=== PATIENT | male | born 1945 | race Caucasian/White ===

== ENCOUNTER 2018-01-29 08:07 | Outpatient (RCR) | payer MEDICARE, SELFPAY | END 2018-02-12 10:06 | LOC: CAR 08:07 | PROVIDERS: Family Provider Family Medicine; PCP Family Medicine; Visit Provider Family Medicine | DX: I25.119 Atherosclerotic heart disease of native coronary artery with unspecified angina pectoris (principal) | CPT/HCPCS: 93798 ==

== ENCOUNTER → 2019-02-27 08:10 | Outpatient (CLI) | payer OTHER, SELFPAY ==
--- NOTE | 2019-02-27 08:15 | DI.RAD.S_ITS ---
PROCEDURE: XR CHEST 2V INDICATIONS: pneumothorax TECHNIQUE: 2 views of the chest were acquired. COMPARISON: [facility], CR, XR CHEST 1 VIEW, 02/18/2019, 11:48. [facility], CR, CHEST 1 VIEW, 04/25/2015, 16:27. [facility], CR, CHEST 1 VIEW, 12/21/2014, 10:31. FINDINGS: Surgical changes and devices: None. Lungs and pleura: Lungs are abnormal with the right lung partially atelectatic associated with a subpulmonic right pleural effusion that has mildly enlarged from the most recent comparison 02/18/19. No left-sided pleural effusions or pneumothorax. There is a slight apical residual pneumothorax on the right, measuring only approximately 8-9 mm in maximal thickness. This likely was also previously present 02/18/19 but obscured by multiple overlapping ribs and the clavicle at that time. Mediastinum: Mediastinal contours are normal. Heart size is normal. Bones and chest wall: No suspicious bony abnormalities. Soft tissues appear unremarkable. IMPRESSION: 1. 8-9 mm maximal thickness slight apical residual pneumothorax on the right. 2. Subpulmonic right pleural effusion has mildly increased, no left pleural effusion is seen. The quantity of right effusion is considered small to moderate. Several small fluid collections within the minor fissure area are noted on the right similar to that previously present. Dictated by: Felix Morse M.D. on 02/27/2019 at 9:59 Approved by: Felix Morse M.D. on 02/27/2019 at 10:27
== END ==
PROVIDERS: Family Provider Family Medicine; PCP Family Medicine; Visit Provider Family Medicine
DX: J93.9 Pneumothorax, unspecified (principal); J90 Pleural effusion, not elsewhere classified
CPT/HCPCS: 71046

== ENCOUNTER → 2019-03-02 10:31 | Outpatient (CLI) | payer MEDICARE, SELFPAY ==
[2019-03-02 12:32] LABS: Add Manual Diff / Slide Review NO; Basophils Absolute Auto 100 /uL (0-100); Basophils Percent Auto 0.8 % (0-2); Eosinophils Absolute Auto 600 /uL (0-450); Eosinophils Percent Auto 7.9 % (2-4); Hematocrit 39.6 % (41-53); Hemoglobin 13.6 g/dL (13.5-17.5); Lymphocytes Absolute Auto 1100 /uL (1100-4500); Lymphocytes Percent Auto 15.6 % (25-40); Mean Corpuscular HGB Conc 34.2 % (30-36); Mean Corpuscular Hemoglobin 28.7 PG (26-34); Mean Corpuscular Volume 83.8 fL (80-100); Monocytes Absolute Auto 300 /uL (0-900); Monocytes Percent Auto 4.2 % (3-14); Neutrophils Absolute Auto 5100 /uL (1500-7000); Neutrophils Percent Auto 71.5 % (50-75); Platelet Count 366 X10^3/uL (150-400); Red Blood Cell Count 4.72 X10^6/uL (4.5-5.9); Red Cell Distribution Width 13.3 % (11.6-14.8); White Blood Cell Count 7.2 X10^3/uL (4.5-11.0)
[2019-03-02 13:06] LABS: Alanine Aminotransferase 28 IU/L (21-72); Albumin 4.3 g/dL (3.5-5.0); Albumin Globulin Ratio 1.7 (1.0-2.8); Alkaline Phosphatase 125 U/L (38-126); Aspartate Aminotransferase 25 IU/L (17-59); BUN Creatinine Ratio 25.7 (6-22); Bilirubin Total 0.6 mg/dL (0.2-1.3); Blood Urea Nitrogen 18 mg/dL (9-20); Calcium 9.5 mg/dL (8.4-10.2); Carbon Dioxide 25 mmol/L (22-32); Chloride 102 mmol/L (98-107); Cholesterol 239 mg/dL (140-199); Estimated Glomerular Filt Rate > 60.0 mL/min (>60); Globulin 2.5 g/dL (1.7-4.1); Glucose 101 mg/dL (80-110); HDL Cholesterol 34 mg/dL (40-60); HEMOLYSIS < 15 (0-50); LDL Cholesterol Calculated 167 mg/dL (<100); Potassium 5.2 mmol/L (3.4-5.1); Sodium 137 mmol/L (137-145); Total Protein 6.8 g/dL (6.3-8.2); Triglycerides 189 mg/dL (35-150)
[2019-03-02 13:36] LABS: Prostate Specific Antigen 0.178 ng/mL (0.10-4.00)
[2019-03-02 13:37] LABS: Thyroid Stimulating Hormone 0.55 uIU/mL (0.47-4.68)
== END ==
PROVIDERS: Family Provider Family Medicine; PCP Family Medicine; Visit Provider Family Medicine
DX: I25.10 Atherosclerotic heart disease of native coronary artery without angina pectoris (principal)
CPT/HCPCS: 36415; 80053; 80061; 84153; 84443; 85025

== ENCOUNTER 2019-06-11 12:52 | Emergency (ER) | payer MEDICARE, SELFPAY ==
[2019-06-11 12:59] VITALS: BP 205/77; PULSE 67; RESP 15; TEMP 36.4; O2SAT 95; BMI 25.8
[2019-06-11] MEDS: TET,DIPH,PERTUSS(ACELL),VAC/PF 0.5 ML SYRINGE IM (13:17)
--- NOTE | 2019-06-11 15:00 | ED.SKABFB ---
HPI - Skin/Abscess/Foreign Bdy <JUVE Gomez - Last Filed: 06/11/19 21:46> General Chief complaint: Extremity Injury, Upper Stated complaint: Fish hook in cheek Time Seen by Provider: 06/11/19 13:02 Source: patient Mode of arrival: ambulatory Limitations: no limitations History of Present Illness HPI narrative: 74yo-old healthy male presents emergency department today complaining of a fishhook in his left cheek. He states this happened around 6:00 a.m. this morning while fishing, he proceeded to continue fishing including the fish throughout and presented to the ER at this time to have it removed. He states the hook was in a fish when it slipped out and caught him on the cheek. Patient denies any head trauma, numbness, tingling, difficulty swallowing, difficulty breathing, fevers, chills, nausea, vomiting, or chest pain. Patient states he is unsure of his last tetanus. Related Data Home Medications Medication Instructions Recorded Confirmed aspirin #0 12/23/11 03/02/19 atenolol 25 mg PO DAILY 06/11/19 06/11/19 lisinopril 10 mg PO QPM 06/11/19 06/11/19 lisinopril 20 mg PO QAM 06/11/19 06/11/19 rosuvastatin [Crestor] 20 mg PO DAILY 06/11/19 06/11/19 Previous Rx's Medication Instructions Recorded nitroglycerin 0.4 mg sublingual 0.4 mg SUBLINGUAL PRN #100 tab 03/02/19 tablet oxycodone 5 mg tablet 5 mg PO Q4-6H PRN #30 tab 03/02/19 doxycycline hyclate 100 mg PO BID 7 Days #14 cap 06/11/19 Allergies Allergy/AdvReac Type Severity Reaction Status Date / Time No Known Drug Allergies Allergy Verified 06/11/19 12:59 Review of Systems <JUVE Gomez - Last Filed: 06/11/19 21:46> Review of Systems Narrative: REVIEW OF SYSTEMS: GENERAL: Denies fever or chills. HENT: Denies head trauma. EYE: Denies double vision or vision loss. CARDIOVASCULAR: Denies syncope. MUSCULOSKELETAL: Denies weakness, or deformities. INTEGUMENTARY: Complains of foot showed stuck in left cheek, see HPI. NEURO: Denies numbness or tingling. Patient denies headaches, he states that his blood pressure is always high. PFSH <JUVE Gomez - Last Filed: 06/11/19 21:46> Surgical History History of angioplasty Status post amputation of extremity Family History (Updated 10/11/14 @ 00:00 by Conversion Provider) Brother Age: 67 Hypertension High cholesterol Brother Age: 67 Hypertension High cholesterol Father Heart disease High cholesterol Social History Smoking Status: Former smoker Family History Brother Age: 67 Hypertension High cholesterol Brother Age: 67 Hypertension High cholesterol Father Heart disease High cholesterol Social History Smoking Status: Former smoker Exam <JUVE Gomez - Last Filed: 06/11/19 21:46> Initial Vital Signs Initial Vital Signs: Vital Signs Temperature 97.6 F 06/11/19 12:59 Pulse Rate 67 06/11/19 12:59 Respiratory Rate 15 06/11/19 12:59 Blood Pressure 205/77 H 06/11/19 12:59 Pulse Oximetry 95 06/11/19 12:59 PHYSICAL EXAMINATION: GENERAL: Well groomed, alert, and cooperative. Answers questions promptly and appropriately. Vital signs noted. HENT: Normocephalic, atraumatic. A large 8-10 cm barbed fishhook imbedded to left cheek with a small amount of surrounding erythema and dried blood around puncture wound. After foreign body removal, two small laceration less than 0.5 cm were noted to the cheek (1 with a hook was imbedded into the cheek, another with a Reba was pushed through to be cut off), wound was extensively irrigated and dressed. Patient tolerated procedure well. EYE: PERRLA, no surrounding erythema or swelling. RESPIRATORY: Normal respiratory rate, trachea midline, airway patent. No stridor, nasal flaring or accessory muscle use. MUSCULOSKELETAL: Normal gait and coordination. Equal tone and mass bilaterally. EXTREMITIES: CMS intact. Moves all extremities. SKIN: Warm, dry, soft, appropriate color for ethnicity NEURO: Alert and Oriented X 3. Good coordination. PSYCH: Appropriate affect and mood. <Symone Eller MD - Last Filed: 06/12/19 16:25> Initial Vital Signs Initial Vital Signs: Vital Signs Temperature 97.6 F 06/11/19 12:59 Pulse Rate 67 06/11/19 12:59 Respiratory Rate 15 06/11/19 12:59 Blood Pressure 205/77 H 06/11/19 12:59 Pulse Oximetry 95 06/11/19 12:59 Procedures <JUVE Gomez - Last Filed: 06/11/19 21:46> Foreign Body OTHER Time Out Performed: yes Site: left and face Description of foreign body: fish hook Sedation/Analgesia: other (Lido 1% with Bicarb ) Technique: manual removal and removal with forceps Confirmed by:: direct visualization Complications: none Post-procedure exam: awake, alert Neurovascular: normal distal pulse, normal capillary fill and distal light touch sensation intact Nerve Block Nerve Block 1: Time out performed: Yes Local Anesthetic: lidocaine 1% and with bicarb Amount of anesthesia used (mL): 8 Side: left Nerve Blocks: other (Facial) Procedure Successful: Yes Patient Tolerated Procedure: Well Complications: none Course <JUVE Gomez - Last Filed: 06/11/19 21:46> Course Course Narrative: After administration of lidocaine with bicarb to the surrounding area, forceps were used to push the reba of the hook through the side of the cheek, the bar was clipped with cutters. Then, the fishhook was removed completely. All parts of the fishhook were seen and disposed of. The wound was irrigated extensively with normal saline and a dressing was applied. Antibiotics were given to the patient, patient was updated on his tetanus shot. Orders Ordered: Discontinued Medications Bacitracin (Bacitracin) 1 applic TOP NOW ONE Stop: 06/11/19 14:41 Last Admin: 06/11/19 15:12 Dose: 1 applic Documented by: BTONER Diphtheria/Tetanus/Acell Pertussis (Adacel) 0.5 ml IM .ONCE ONE Stop: 06/11/19 13:01 Last Admin: 06/11/19 13:17 Dose: 0.5 ml Documented by: KBROTEM Lidocaine/Sodium Bicarbonate (Buffered Lidocaine 10 Ml Syr) 10 ml INJ NOW ONE Stop: 06/11/19 13:59 Last Admin: 06/11/19 15:12 Dose: 10 ml Documented by: BTONER Vital Signs Vital signs: Vital Signs - 8 hr 06/11/19 15:31 Pulse Rate 57 L Respiratory Rate 18 Blood Pressure 194/57 H Pulse Oximetry 97 <Symone Eller MD - Last Filed: 06/12/19 16:25> Orders Ordered: Discontinued Medications Bacitracin (Bacitracin) 1 applic TOP NOW ONE Stop: 06/11/19 14:41 Last Admin: 06/11/19 15:12 Dose: 1 applic Documented by: BTONER Diphtheria/Tetanus/Acell Pertussis (Adacel) 0.5 ml IM .ONCE ONE Stop: 06/11/19 13:01 Last Admin: 06/11/19 13:17 Dose: 0.5 ml Documented by: DARRENOTEAdrienne Lidocaine/Sodium Bicarbonate (Buffered Lidocaine 10 Ml Syr) 10 ml INJ NOW ONE Stop: 06/11/19 13:59 Last Admin: 06/11/19 15:12 Dose: 10 ml Documented by: BTONER Vital Signs Vital signs: Vital Signs - 8 hr 06/11/19 15:31 Pulse Rate 57 L Respiratory Rate 18 Blood Pressure 194/57 H Pulse Oximetry 97 MDM - Skin/Abscess/Foreign Bdy <JUVE Gomez - Last Filed: 06/11/19 21:46> Medical Records Attestation: I reviewed the patient's medical records. Lab Data Attestation: I reviewed the patient's lab results. MDM Narrative Medical decision making narrative: Simple removal a fishhook-foreign body from the cheek, removal was visualized, all pieces of foreign body were accounted for. Patient was prescribed doxycycline as this covers salt water bacteria, there was surrounding erythema around the wound, and patient went for hours with this had imbedded into his cheek.. I do not have any concern for sepsis as patient was not tachycardic, he was afebrile, and the incident happened today. Strict return precautions given and follow-up instructions discussed. I also discussed with patient the importance for follow-up with high blood pressure, patient understood and exhibited no symptoms. Discharge Plan Departure Patient Disposition: Home Clinical Impression: Fish hook injury of cheek Qualifiers: Encounter type: initial encounter Qualified Code(s): S09.93XA - Unspecified injury of face, initial encounter Discharge Date/Time: 06/11/19 15:31 Instructions: DI for Cellulitis -- Adult Activity Restrictions/Additional Instructions: Thank you for entrusting me with your care today. As discussed, we have removed the fishhook in your cheek. Because it was left in place for a while and because of the salt water exposure there is an increased risk of infection, I prescribed you antibiotics, please take these as directed. You may put Neosporin over the area, please washer wound daily. Follow up with your primary care provider if needed. Continue to monitor for signs of infection such as increased redness, increased warmth, pus, discolored discharge, increased pain, fevers, chills, or other concerning symptoms--if this happened, please return to the walk-in clinic or the emergency department. Prescriptions: New doxycycline hyclate 100 mg capsule 100 mg PO BID 7 Days Qty: 14 RF: 0 No Action aspirin 81 MG tablet,delayed release (DR/EC) Qty: 0 RF: 0 oxycodone 5 mg tablet 5 mg PO Q4-6H PRN (Reason: pain) Qty: 30 RF: 0 nitroglycerin [Nitrostat] 0.4 mg tablet, sublingual 0.4 mg Sublingual PRN Qty: 100 RF: 5 lisinopril 20 mg tablet 20 mg PO QAM RF: 0 lisinopril 20 mg tablet 10 mg PO QPM RF: 0 atenolol 50 mg tablet 25 mg PO DAILY RF: 0 rosuvastatin [Crestor] 20 mg tablet 20 mg PO DAILY RF: 0 Referrals: Derik Gross MD [Primary Care Provider] -
[2019-06-11] MEDS: BACITRACIN OINT 0.9 GM PCKT 1 APPLIC TOP (15:12)
[2019-06-11] MEDS: LIDO 1%/SOD BICARB 8.4% (10ML) 10 ML SYRINGE INJ (15:12)
--- NOTE | 2019-06-11 15:30 | PC.NURSE ---
provided bacitracin to left cheek as ordered.
[2019-06-11 15:31] VITALS: BP 194/57; PULSE 57; RESP 18; O2SAT 97
== END 2019-06-11 15:31 | disposition home or self-care (01) ==
PROVIDERS: Emergency Provider Nurse Practitioner; Family Provider Family Medicine; PCP Family Medicine
DX: S01.432A Puncture wound without foreign body of left cheek and temporomandibular area, initial encounter (principal); W45.8XXA Other foreign body or object entering through skin, initial encounter
CPT/HCPCS: 90471; 99282; 99283; 90715

== ENCOUNTER → 2019-06-29 09:26 | Outpatient (CLI) | payer MEDICARE, SELFPAY ==
[2019-06-29 10:30] LABS: Add Manual Diff / Slide Review NO; Basophils Absolute Auto 100 /uL (0-100); Basophils Percent Auto 1.6 % (0-2); Eosinophils Absolute Auto 500 /uL (0-450); Eosinophils Percent Auto 6.1 % (2-4); Hematocrit 48.9 % (41-53); Hemoglobin 16.9 g/dL (13.5-17.5); Lymphocytes Absolute Auto 2000 /uL (1100-4500); Lymphocytes Percent Auto 24.3 % (25-40); Mean Corpuscular HGB Conc 34.6 % (30-36); Mean Corpuscular Hemoglobin 28.2 PG (26-34); Mean Corpuscular Volume 81.3 fL (80-100); Monocytes Absolute Auto 600 /uL (0-900); Monocytes Percent Auto 7.1 % (3-14); Neutrophils Absolute Auto 5100 /uL (1500-7000); Neutrophils Percent Auto 60.9 % (50-75); Platelet Count 201 X10^3/uL (150-400); Red Blood Cell Count 6.01 X10^6/uL (4.5-5.9); Red Cell Distribution Width 14.9 % (11.6-14.8); White Blood Cell Count 8.4 X10^3/uL (4.5-11.0)
[2019-06-29 11:07] LABS: Alanine Aminotransferase 32 IU/L (21-72); Albumin 4.7 g/dL (3.5-5.0); Albumin Globulin Ratio 1.5 (1.0-2.8); Alkaline Phosphatase 68 U/L (38-126); Aspartate Aminotransferase 33 IU/L (17-59); BUN Creatinine Ratio 28.6 (6-22); Bilirubin Total 0.7 mg/dL (0.2-1.3); Blood Urea Nitrogen 20 mg/dL (9-20); Calcium 9.8 mg/dL (8.4-10.2); Carbon Dioxide 28 mmol/L (22-32); Chloride 101 mmol/L (98-107); Cholesterol 281 mg/dL (140-199); Estimated Glomerular Filt Rate > 60.0 mL/min (>60); Globulin 3.1 g/dL (1.7-4.1); Glucose 110 mg/dL (80-110); HDL Cholesterol 48 mg/dL (40-60); HEMOLYSIS 46 (0-50); LDL Cholesterol Calculated 199 mg/dL (<100); Potassium 5.3 mmol/L (3.4-5.1); Sodium 140 mmol/L (137-145); Total Protein 7.8 g/dL (6.3-8.2); Triglycerides 168 mg/dL (35-150)
[2019-06-29 11:34] LABS: Prostate Specific Antigen 0.261 ng/mL (0.10-4.00)
== END ==
PROVIDERS: PCP Family Medicine; Visit Provider Family Medicine
DX: I25.10 Atherosclerotic heart disease of native coronary artery without angina pectoris (principal); C61 Malignant neoplasm of prostate
CPT/HCPCS: 36415; 80053; 80061; 84153; 85025

== ENCOUNTER → 2019-10-27 10:09 | Outpatient (CLI) | payer MEDICARE, SELFPAY ==
[2019-10-27 11:14] LABS: Add Manual Diff / Slide Review NO; Basophils Absolute Auto 100 /uL (0-100); Basophils Percent Auto 1.4 % (0-2); Eosinophils Absolute Auto 300 /uL (0-450); Hematocrit 45.1 % (41-53); Hemoglobin 15.3 g/dL (13.5-17.5); Lymphocytes Absolute Auto 1600 /uL (1100-4500); Lymphocytes Percent Auto 24.1 % (25-40); Mean Corpuscular Hemoglobin 29.2 PG (26-34); Monocytes Absolute Auto 500 /uL (0-900); Neutrophils Absolute Auto 4000 /uL (1500-7000); Neutrophils Percent Auto 62.5 % (50-75); Platelet Count 204 X10^3/uL (150-400); Red Blood Cell Count 5.24 X10^6/uL (4.5-5.9); White Blood Cell Count 6.5 X10^3/uL (4.5-11.0)
[2019-10-27 11:45] LABS: Alanine Aminotransferase 27 IU/L (<50); Albumin 4.1 g/dL (3.5-5.0); Albumin Globulin Ratio 1.7 (1.0-2.8); Alkaline Phosphatase 54 U/L (38-126); Aspartate Aminotransferase 27 IU/L (17-59); BUN Creatinine Ratio 28.8 (6-22); Bilirubin Total 0.6 mg/dL (0.2-1.3); Blood Urea Nitrogen 23 mg/dL (9-20); Calcium 9.4 mg/dL (8.4-10.2); Carbon Dioxide 26 mmol/L (22-32); Chloride 104 mmol/L (98-107); Cholesterol 206 mg/dL (140-199); Estimated Glomerular Filt Rate > 60.0 mL/min (>60); Globulin 2.4 g/dL (1.7-4.1); Glucose 100 mg/dL (80-110); HDL Cholesterol 45 mg/dL (40-60); HEMOLYSIS 28 (0-50); LDL Cholesterol Calculated 119 mg/dL (<100); Potassium 4.7 mmol/L (3.4-5.1); Sodium 139 mmol/L (137-145); Total Protein 6.5 g/dL (6.3-8.2); Triglycerides 212 mg/dL (35-150)
[2019-10-27 12:18] LABS: Prostate Specific Antigen 0.248 ng/mL (0.10-4.00)
== END ==
PROVIDERS: PCP Family Medicine; Visit Provider Family Medicine
DX: I25.10 Atherosclerotic heart disease of native coronary artery without angina pectoris (principal); C61 Malignant neoplasm of prostate
CPT/HCPCS: 36415; 80053; 80061; 84153; 85025

== ENCOUNTER → 2021-03-10 08:16 | Outpatient (CLI) | payer MEDICARE, SELFPAY ==
[2021-03-10 08:55] LABS: Add Manual Diff / Slide Review NO; Basophils Absolute Auto 100 /uL (0-100); Basophils Percent Auto 1.5 % (0-2); Eosinophils Absolute Auto 400 /uL (0-450); Eosinophils Percent Auto 6.2 % (2-4); Hemoglobin 15.4 g/dL (13.5-17.5); Lymphocytes Absolute Auto 1800 /uL (1100-4500); Lymphocytes Percent Auto 26.9 % (25-40); Mean Corpuscular HGB Conc 34.2 % (30-36); Mean Corpuscular Hemoglobin 29.2 PG (26-34); Mean Corpuscular Volume 85.4 fL (80-100); Monocytes Absolute Auto 500 /uL (0-900); Neutrophils Absolute Auto 3800 /uL (1500-7000); Neutrophils Percent Auto 58.4 % (50-75); Platelet Count 201 X10^3/uL (150-400); Red Blood Cell Count 5.27 X10^6/uL (4.5-5.9); Red Cell Distribution Width 13.4 % (11.6-14.8); White Blood Cell Count 6.6 X10^3/uL (4.5-11.0)
[2021-03-10 09:19] LABS: Alanine Aminotransferase 27 IU/L (<50); Albumin 4.1 g/dL (3.5-5.0); Albumin Globulin Ratio 1.7 (1.0-2.8); Alkaline Phosphatase 50 U/L (38-126); Aspartate Aminotransferase 25 IU/L (17-59); BUN Creatinine Ratio 30.4 (6-22); Bilirubin Total 0.5 mg/dL (0.2-1.3); Blood Urea Nitrogen 24 mg/dL (9-20); Calcium 9.6 mg/dL (8.4-10.2); Carbon Dioxide 24 mmol/L (22-32); Chloride 106 mmol/L (98-107); Cholesterol 210 mg/dL (140-199); Estimated Glomerular Filt Rate > 60.0 mL/min (>60); Globulin 2.4 g/dL (1.7-4.1); Glucose 115 mg/dL (80-110); HDL Cholesterol 55 mg/dL (40-60); HEMOLYSIS < 15 (0-50); LDL Cholesterol Calculated 138 mg/dL (<100); Potassium 4.5 mmol/L (3.4-5.1); Sodium 138 mmol/L (137-145); Total Protein 6.5 g/dL (6.3-8.2); Triglycerides 84 mg/dL (35-150)
[2021-03-10 09:48] LABS: Prostate Specific Antigen Scrn 0.185 ng/mL (0.1-4.0)
[2021-03-10 10:16] LABS: Microalbumi Creatinin Ratio Ur 8.8 ug/mg CR (<30); Microalbumin Urine Random 0.9 mg/dL (0-1.6)
== END ==
PROVIDERS: PCP Family Medicine; Referring Provider Family Medicine; Visit Provider Family Medicine
DX: C61 Malignant neoplasm of prostate (principal); I10 Essential (primary) hypertension; Z12.5 Encounter for screening for malignant neoplasm of prostate; E78.2 Mixed hyperlipidemia; I25.10 Atherosclerotic heart disease of native coronary artery without angina pectoris
CPT/HCPCS: 36415; 80053; 80061; 82043; 82570; 85025; G0103

== ENCOUNTER → 2021-03-15 09:43 | Outpatient (CLI) | payer MEDICARE, SELFPAY ==
--- NOTE | 2021-03-16 14:37 | PM.TREADMILL ---
Cardiac Stress Test Report Referral & Results Date Patient Seen: 03/16/21 Requesting provider: Brenton Pires Indication: Throat burning, question anginal equivalent, history of coronary artery disease status post stent placement Rest ECG: Unremarkable Procedure Note: Today following both written and verbal informed consent the patient was exercised according to a standard Zuhair protocol patient went for a total of 5 minutes 10 seconds achieving a maximum heart rate of 143 maximum systolic blood pressure of 215. This is approximately 7.0 METS. Exercise was terminated at this point because of patient unable to continue. Patient was also given Cardiolite through a previously started Hep-Lock IV by the diagnostic imaging staff approximately 1 minute prior to the cessation of exercise. Patient was hypertensive throughout There was some flat ST segment depression inferior leads during exercise that rapidly resolved with cessation of exercise in early recovery. However late recovery developed T-wave inversions in the lateral leads primarily V4 through V6. The may have been some changes in the inferior leads as well although given baseline abnormalities difficult to ascertain Occasional PVC and PAC were noted including 3-5 beat runs of SVT in recovery Function aerobic impairment rates about 20% on the active scale Impression: Patient nonspecific ST-T segment changes with exercise that are suggestive of ischemia but not diagnostic. Please see perfusion imaging report for further details Patient also quite hypertensive with exercise any even hypertensive at rest prior to initiation of procedure. Minor supraventricular dysrhythmias as above Somewhat limited exercise capacity Please note: Actual ECG tracings can be found in the PACS system.
--- NOTE | 2021-03-16 16:39 | DI.NM.S_ITS ---
DATE OF SERVICE: 03/15/2021 PROCEDURE PERFORMED: Exercise treadmill stress and rest myocardial perfusion imaging with gating to assess ejection fraction and regional wall motion. ORDERING PROVIDER: Dr. Brenton Pires. INDICATIONS: The patient is a 75-year-old with a history of coronary artery stent and exertional neck discomfort, concerning for an anginal equivalent. EXERCISE TREADMILL TESTING: The patient was able to exercise for 5 minutes 10 seconds on a standard Zuhair protocol suggesting mild-moderately reduced exercise capacity with an AMINTA of +20%. He had a normal heart rate response, achieving a maximum heart rate of 143 BPM (97% of his predicted maximum) but a hypertensive blood pressure response with a resting blood pressure of 178/96, increasing to a maximum of 215/100. He had no chest discomfort or neck discomfort with exercise. His resting ECG shows sinus rhythm with nonspecific inferolateral ST-segment abnormalities that become significantly accentuated with stress but remain nonspecific because of the baseline abnormality. There are occasional isolated PVCs, but no concerning arrhythmias. At 4 minutes 5 seconds of exercise at a heart rate of 142 BPM, 27.4 millicuries of technetium-99m Myoview was injected. He was imaged 15 minutes later using a gated SPECT acquisition protocol. The day prior he had been injected with 24.0 millicuries of technetium-99m Myoview at rest and was imaged 30 minutes later, again using a gated SPECT acquisition protocol. FINDINGS: 1. Raw data: There is fairly good myocardial tracer uptake. Lung/heart ratio is normal at 0.38 with a normal TID ratio of 1.08. 2. Quantitated gated SPECT: Post stress ejection fraction is estimated at 74% without any focal wall motion abnormality and specifically the inferior wall has normal contractility. The resting ejection fraction is 71% with an end-diastolic volume of 101 mL. 3. Myocardial perfusion imaging: Post-stress supine images show a fairly normal myocardial perfusion pattern with the exception of a mild defect in the distal inferior wall and inferoapex that completely resolves on prone imaging, consistent with attenuation artifact. The resting images show a similar perfusion pattern with possibly some mild improvement, but this is nonspecific in the absence of any persistent defect on the prone images. There are no other perfusion defects. IMPRESSION: 1. Probable normal myocardial perfusion study. 2. Small, subtle, partially reversible distal inferior and inferoapical defect that resolves on prone imaging, most consistent with diaphragmatic attenuation. While a small volume of ischemia cannot be entirely excluded, if present, it is low risk. 3. Normal left ventricular systolic function without any focal wall motion abnormality. 4. Mild-moderately reduced exercise capacity without anginal symptoms. While there were significant ST-segment shifts, baseline ST-segment abnormalities and a hypertensive blood pressure response to exercise makes these nonspecific. 5. Compared with his previous myocardial perfusion study of 12/22/2014, a similar perfusion pattern was seen where there was inferior wall perfusion defect that resolved on prone imaging. His previous ejection fraction was 79% with an end-diastolic volume of 82 mL, suggesting slight interval increase in size but no other significant change. His AMINTA was +20% on that study as well but there were no significant EC changes on that study. Giovany Garcia - DANIEL/rell/frances doc#: [id number]/job#: [id number] dd: 03/16/2021 16:04:00 dt: 03/16/2021 16:25:00 DICTATING /COPIES TO: Mukund Lugo MD; Brenton Pires, BLU MNE: KATERYNA;
== END ==
PROVIDERS: PCP Family Medicine; Referring Provider Family Medicine; Visit Provider Family Medicine
DX: I25.10 Atherosclerotic heart disease of native coronary artery without angina pectoris (principal); M54.2 Cervicalgia; R07.0 Pain in throat; R03.0 Elevated blood-pressure reading, without diagnosis of hypertension; Z95.5 Presence of coronary angioplasty implant and graft; Z20.822 Contact with and (suspected) exposure to COVID-19
CPT/HCPCS: 78452; 87635; 93016; 93017; 93018; C9803; A9502

== ENCOUNTER → 2021-03-15 11:05 | Outpatient (CLI) | payer MEDICARE, SELFPAY ==
[2021-03-15 13:01] LABS: COVID19 -Nasal RAPID Negative (Negative)
== END ==
PROVIDERS: PCP Family Medicine; Visit Provider Nurse Practitioner Family
DX: Z20.822 Contact with and (suspected) exposure to COVID-19 (principal)
CPT/HCPCS: 87635; C9803

== ENCOUNTER 2021-04-05 11:43 | Emergency (ER) | payer MEDICARE, SELFPAY ==
[2021-04-05 12:10] VITALS: BP 203/86; PULSE 49; RESP 18; TEMP 35.8; O2SAT 97; BMI 26.6
[2021-04-05 13:33] LABS: Add Manual Diff / Slide Review NO; Basophils Absolute Auto 100 /uL (0-100); Basophils Percent Auto 0.9 % (0-2); Eosinophils Absolute Auto 200 /uL (0-450); Eosinophils Percent Auto 2.3 % (2-4); Hematocrit 44.4 % (41-53); Hemoglobin 15.2 g/dL (13.5-17.5); Lymphocytes Absolute Auto 1400 /uL (1100-4500); Mean Corpuscular HGB Conc 34.3 % (30-36); Mean Corpuscular Hemoglobin 29.2 PG (26-34); Mean Corpuscular Volume 85.1 fL (80-100); Monocytes Absolute Auto 900 /uL (0-900); Monocytes Percent Auto 9.3 % (3-14); Neutrophils Absolute Auto 7200 /uL (1500-7000); Neutrophils Percent Auto 73.5 % (50-75); Platelet Count 206 X10^3/uL (150-400); Red Blood Cell Count 5.22 X10^6/uL (4.5-5.9); Red Cell Distribution Width 13.2 % (11.6-14.8); White Blood Cell Count 9.9 X10^3/uL (4.5-11.0)
[2021-04-05 13:39] LABS: Alanine Aminotransferase 36 IU/L (<50); Albumin 4.5 g/dL (3.5-5.0); Albumin Globulin Ratio 1.5 (1.0-2.8); Alkaline Phosphatase 63 U/L (38-126); Aspartate Aminotransferase 25 IU/L (17-59); Bilirubin Total 0.6 mg/dL (0.2-1.3); Blood Urea Nitrogen 20 mg/dL (9-20); Calcium 9.7 mg/dL (8.4-10.2); Carbon Dioxide 27 mmol/L (22-32); Chloride 102 mmol/L (98-107); Estimated Glomerular Filt Rate > 60.0 mL/min (>60); Globulin 3.1 g/dL (1.7-4.1); Glucose 121 mg/dL (80-110); HEMOLYSIS < 15 (0-50); Sodium 138 mmol/L (137-145); Total Protein 7.6 g/dL (6.3-8.2)
[2021-04-05 13:59] VITALS: PULSE 50; RESP 16; TEMP 36.3; O2SAT 99
[2021-04-05 14:00] VITALS: BP 169/74
[2021-04-05 15:00] VITALS: BP 181/81; PULSE 54; RESP 16; O2SAT 99
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
== END 2021-04-05 15:30 | disposition home or self-care (01) ==
PROVIDERS: Emergency Provider Emergency Medicine; PCP Family Medicine
DX: L03.116 Cellulitis of left lower limb (principal); Z89.512 Acquired absence of left leg below knee
CPT/HCPCS: 36415; 80053; 85025; 87040; 99281; 99283

== ENCOUNTER 2021-04-14 15:10 | Emergency (ER) | payer MEDICARE, SELFPAY ==
[2021-04-14 15:30] VITALS: BP 197/88; PULSE 57; RESP 20; TEMP 36.6; O2SAT 97; BMI 26.6
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
[2021-04-14 16:02] VITALS: BP 178/75; PULSE 61; TEMP 36.9; O2SAT 94
[2021-04-14 16:16] VITALS: PULSE 62; O2SAT 98
== END 2021-04-14 16:18 | disposition home or self-care (01) ==
PROVIDERS: Emergency Provider Emergency Medicine; PCP Family Medicine
DX: L03.116 Cellulitis of left lower limb (principal); Z89.512 Acquired absence of left leg below knee
CPT/HCPCS: 99281

== ENCOUNTER 2021-05-01 08:58 | Emergency (ER) | payer MEDICARE, SELFPAY ==
[2021-05-01] VITALS (12 sets, daily range): BP systolic 197–232; BP diastolic 83–102; PULSE 42–54; RESP 16; TEMP 36.5; O2SAT 96–100
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
--- NOTE | 2021-05-01 12:55 | DI.RAD.S_ITS ---
PROCEDURE: XR TIBIA FIBULA LT 2V INDICATIONS: erythema at amputation site TECHNIQUE: 2 views of the tibia and fibula were acquired. COMPARISON: [facility], MR, MR LOWER LEG LT WO/W CON, 02/03/2018, 17:32. [facility], CR, TIB/FIB 2V LEFT, 12/08/2017, 10:49. [facility], CR, TIB/FIB 2V LEFT, 11/07/2017, 9:55. FINDINGS: Bones: Distal tibial amputation can be seen. Similar to 2018, there is bony sclerosis seen involving the distal tibial shaft. Periosteal reaction can also be seen distally, which is similar to 2018. Soft tissues: Soft tissue findings are seen, which are similar to 2018. IMPRESSION: No rosenda acute abnormality can be seen by plain film. If there is strong suspicion for developing osteomyelitis, please consider a dedicated MRI without and with contrast for further evaluation (assuming that there is no contraindication to MRI). Dictated by: Kyaw Frye M.D. on 05/01/2021 at 12:34 Approved by: Kyaw Frye M.D. on 05/01/2021 at 12:38
[2021-05-01 13:30] LABS: Add Manual Diff / Slide Review NO; Basophils Absolute Auto 100 /uL (0-100); Basophils Percent Auto 1.2 % (0-2); Eosinophils Absolute Auto 300 /uL (0-450); Eosinophils Percent Auto 3.4 % (2-4); Hematocrit 46.1 % (41-53); Hemoglobin 15.5 g/dL (13.5-17.5); Lymphocytes Absolute Auto 1900 /uL (1100-4500); Lymphocytes Percent Auto 18.7 % (25-40); Mean Corpuscular HGB Conc 33.6 % (30-36); Mean Corpuscular Hemoglobin 28.8 PG (26-34); Mean Corpuscular Volume 85.6 fL (80-100); Monocytes Absolute Auto 700 /uL (0-900); Monocytes Percent Auto 7.4 % (3-14); Neutrophils Absolute Auto 6900 /uL (1500-7000); Neutrophils Percent Auto 69.3 % (50-75); Platelet Count 205 X10^3/uL (150-400); Red Blood Cell Count 5.39 X10^6/uL (4.5-5.9); Red Cell Distribution Width 12.8 % (11.6-14.8)
[2021-05-01 13:45] LABS: Lactate (Lactic Acid) 0.9 mmol/L (0.7-2.1)
[2021-05-01 13:46] LABS: Alanine Aminotransferase 37 IU/L (<50); Albumin 4.2 g/dL (3.5-5.0); Albumin Globulin Ratio 1.4 (1.0-2.8); Alkaline Phosphatase 59 U/L (38-126); Aspartate Aminotransferase 29 IU/L (17-59); BUN Creatinine Ratio 24.3 (6-22); Bilirubin Total 0.8 mg/dL (0.2-1.3); Blood Urea Nitrogen 18 mg/dL (9-20); Calcium 9.6 mg/dL (8.4-10.2); Carbon Dioxide 29 mmol/L (22-32); Chloride 105 mmol/L (98-107); Estimated Glomerular Filt Rate > 60.0 mL/min (>60); Globulin 2.9 g/dL (1.7-4.1); Glucose 106 mg/dL (80-110); HEMOLYSIS < 15 (0-50); Sodium 140 mmol/L (137-145); Total Protein 7.1 g/dL (6.3-8.2)
[2021-05-01 13:48] LABS: C-Reactive Protein Quant 1.6 mg/dL (<1.0)
[2021-05-01 13:49] LABS: Erythrocyte Sedimentation Rate 3 MM/HR (0-15)
[2021-05-01 14:02] LABS: Procalcitonin 0.08 ng/mL (<0.5)
== END 2021-05-01 14:45 | disposition home or self-care (01) ==
PROVIDERS: Emergency Provider Nurse Practitioner Family; PCP Family Medicine
DX: M79.605 Pain in left leg (principal); Z89.612 Acquired absence of left leg above knee
CPT/HCPCS: 36415; 73590; 80053; 83605; 84145; 85025; 85651; 86140; 99283; 99284

== ENCOUNTER → 2022-08-29 08:14 | Outpatient (CLI) | payer MEDICARE, SELFPAY ==
[2022-08-29 08:43] LABS: Add Manual Diff / Slide Review NO; Basophils Absolute Auto 100 /uL (0-100); Basophils Percent Auto 1.1 % (0-2); Eosinophils Absolute Auto 500 /uL (0-450); Eosinophils Percent Auto 6.1 % (2-4); Hematocrit 46.1 % (41-53); Hemoglobin 15.5 g/dL (13.5-17.5); Lymphocytes Absolute Auto 2300 /uL (1100-4500); Lymphocytes Percent Auto 30.7 % (25-40); Mean Corpuscular HGB Conc 33.7 % (30-36); Mean Corpuscular Hemoglobin 28.6 PG (26-34); Mean Corpuscular Volume 84.8 fL (80-100); Monocytes Absolute Auto 600 /uL (0-900); Monocytes Percent Auto 7.6 % (3-14); Neutrophils Absolute Auto 4100 /uL (1500-7000); Neutrophils Percent Auto 54.5 % (50-75); Platelet Count 226 X10^3/uL (150-400); Red Blood Cell Count 5.43 X10^6/uL (4.5-5.9); Red Cell Distribution Width 13.3 % (11.6-14.8); White Blood Cell Count 7.5 X10^3/uL (4.5-11.0)
[2022-08-29 09:19] LABS: Alanine Aminotransferase 25 IU/L (<50); Albumin 4.5 g/dL (3.5-5.0); Albumin Globulin Ratio 1.8 (1.0-2.8); Alkaline Phosphatase 57 U/L (38-126); Aspartate Aminotransferase 23 IU/L (17-59); BUN Creatinine Ratio 24.4 (6-22); Bilirubin Total 0.5 mg/dL (0.2-1.3); Blood Urea Nitrogen 21 mg/dL (9-20); Calcium 9.4 mg/dL (8.4-10.2); Carbon Dioxide 27 mmol/L (22-32); Chloride 103 mmol/L (98-107); Cholesterol 201 mg/dL (140-199); Estimated Glomerular Filt Rate > 60 mL/min (>60); Globulin 2.5 g/dL (1.7-4.1); Glucose 113 mg/dL (80-110); HDL Cholesterol 54 mg/dL (40-60); HEMOLYSIS < 15 (0-50); LDL Cholesterol Calculated 123 mg/dL (<100); Sodium 143 mmol/L (137-145); Triglycerides 122 mg/dL (35-150)
[2022-08-29 09:44] LABS: Creatinine Urine Random 107.5 mg/dL
[2022-08-29 09:48] LABS: TSH w/ Reflex to FT4 1.45 uIU/mL (0.47-4.68)
[2022-08-29 09:49] LABS: Microalbumi Creatinin Ratio Ur 13.9 ug/mg CR (<30); Microalbumin Urine Random 1.5 mg/dL (0-1.6)
[2022-08-30 08:11] LABS: PSA Ultrasensitive 0.077 ng/mL (0.000-4.000)
== END ==
PROVIDERS: PCP Family Medicine; Referring Provider Family Medicine; Visit Provider Family Medicine
DX: C61 Malignant neoplasm of prostate (principal); E78.2 Mixed hyperlipidemia; I10 Essential (primary) hypertension; I25.118 Atherosclerotic heart disease of native coronary artery with other forms of angina pectoris; I27.20 Pulmonary hypertension, unspecified; Z95.5 Presence of coronary angioplasty implant and graft
CPT/HCPCS: 36415; 80053; 80061; 82043; 82570; 84153; 84443; 85025

== ENCOUNTER 2023-02-10 15:08 | Emergency (ER) | payer MEDICARE, SELFPAY ==
[2023-02-10 15:08] VITALS: BP 176/77; PULSE 67; RESP 16; TEMP 36.7; O2SAT 96; BMI 26.9
--- NOTE | 2023-02-10 15:20 | ED_ITS ---
HPI - Skin/Abscess/Foreign Bdy General Chief complaint: Skin/Abscess/Foreign Body Stated complaint: fish hook in face Time Seen by Provider: 02/10/23 15:10 Source: patient Mode of arrival: Ambulatory History of Present Illness HPI narrative: Patient is a 77-year-old male who yesterday had a fish hook get stuck in the right side of his face. He was in [facility] at the time and could not make it to a hospital which is why he presents today. He is unsure when his last tetanus shot was. Was unable to remove it on its own. Related Data Home Medications Medication Instructions Recorded Confirmed aspirin 81 mg tablet,delayed ##0 12/23/11 09/10/22 release lisinopril 20 mg tablet See Rx Instructions .Route .COMPLEX 09/10/22 09/10/22 Previous Rx's Medication Instructions Recorded doxycycline hyclate 100 mg tablet 100 mg PO BID #20 tabs 04/05/21 atorvastatin 40 mg tablet See Rx Instructions .Route 01/09/22 .COMPLEX #90 tabs nitroglycerin 0.4 mg sublingual 0.4 mg sublingual PRN #100 tabs 01/15/22 tablet (Nitrostat) atenolol 50 mg tablet 25 mg PO DAILY #90 tabs 08/31/22 Allergies Allergy/AdvReac Type Severity Reaction Status Date / Time No Known Drug Allergies Allergy Verified 04/14/21 15:39 Review of Systems Integumentary/Breasts Skin/Breast: Reports system reviewed and no additional complaints, except as documented Patient History Medical History Chicken pox Irritable bowel syndrome Measles Mumps Skin cancer (~1999) Surgical History Anesthesia History of angioplasty (~2009) History of surgery (~2013) Status post amputation of extremity Family History (Updated 03/15/21 @ 20:29 by Mariam Reyes) Brother Age: 71 Hypertension High cholesterol Brother Age: 71 Hypertension High cholesterol Father Heart disease High cholesterol Mother Stroke Sister Stroke Social History Smoking Status: Former smoker Smoking Status: Former smoker alcohol intake frequency: 0-2 drinks per day Substance Use Type: does not use Exam Initial Vital Signs Initial Vital Signs: Vital Signs Temperature 98.1 F 02/10/23 15:08 Pulse Rate 67 02/10/23 15:08 Respiratory Rate 16 02/10/23 15:08 Blood Pressure 176/77 H 02/10/23 15:08 Pulse Oximetry 96 02/10/23 15:08 Oxygen Delivery Method Room Air 02/10/23 15:08 Skin Other: Patient with a fish hook from the right side of his face along the mandibular ridge. No surrounding erythema. Procedures Foreign Body OTHER Foreign Body Removal Site: left Description of foreign body: fish hook Sedation/Analgesia: none Technique: manual removal and removal with forceps Confirmed by:: direct visualization Complications: none Course Vital Signs Vital signs: Vital Signs - 8 hr 02/10/23 15:08 Temperature 98.1 F Pulse Rate 67 Respiratory Rate 16 Blood Pressure 176/77 H Pulse Oximetry 96 Oxygen Delivery Method Room Air MDM - Skin/Abscess/Foreign Bdy MDM Narrative Medical decision making narrative: Small amount of 1% lidocaine was used to anesthetize the area of the fishhook was removed without issue. The entire fishhook was removed. Low suspicion for retained foreign body. No signs of infection. No indication for antibiotics. His last tetanus shot was in 2019. Discharge Plan Departure Patient Disposition: Home Clinical Impression: Foreign body entering through skin Activity Restrictions/Additional Instructions: According to our records your last tetanus shot was in 2019 so we do not need to update that today. You can shower like normal use soap and water to clean the area. Return to the emergency department for any new symptoms. Prescriptions: No Action aspirin 81 MG tablet,delayed release (DR/EC) Qty: 0 atorvastatin 40 mg tablet See Rx Instructions .ROUTE .COMPLEX Qty: 90 3RF Dose Instruction: TAKE 1 TABLET BY MOUTH EVERY EVENING Rx Instructions: TAKE 1 TABLET BY MOUTH EVERY EVENING nitroglycerin [Nitrostat] 0.4 mg tablet, sublingual 0.4 mg Sublingual PRN Qty: 100 5RF atenolol 50 mg tablet 25 mg PO DAILY Qty: 90 3RF lisinopril 20 mg tablet See Rx Instructions .ROUTE .COMPLEX Dose Instruction: TAKE 1 1/2 TABLETS BY MOUTH EVERY DAY. PT NEEDS APPT FOR FURTHER REFILLS. Rx Instructions: TAKE 2 TABLETS BY MOUTH EVERY DAY. PT NEEDS APPT FOR FURTHER REFILLS. doxycycline hyclate 100 mg tablet 100 mg PO BID Qty: 20 0RF Referrals: Brenton Pires MD [Primary Care Provider] - Stand Alone Forms: Patient Portal/API
== END 2023-02-10 15:29 | disposition home or self-care (01) ==
PROVIDERS: Emergency Provider Emergency Medicine; PCP Family Medicine
DX: S00.85XA Superficial foreign body of other part of head, initial encounter (principal); W45.8XXA Other foreign body or object entering through skin, initial encounter
CPT/HCPCS: 10120; 99281; 99282

== ENCOUNTER → 2023-10-16 08:53 | Outpatient (CLI) | payer MEDICARE, SELFPAY ==
[2023-10-16 09:26] LABS: Add Manual Diff / Slide Review NO; Basophils Absolute Auto 100 /uL (0-100); Basophils Percent Auto 1.2 % (0-2); Eosinophils Absolute Auto 400 /uL (0-450); Eosinophils Percent Auto 5.6 % (2-4); Hemoglobin 15.3 g/dL (13.5-17.5); Lymphocytes Absolute Auto 2500 /uL (1100-4500); Mean Corpuscular HGB Conc 33.9 % (30-36); Mean Corpuscular Hemoglobin 28.5 PG (26-34); Mean Corpuscular Volume 83.9 fL (80-100); Monocytes Absolute Auto 600 /uL (0-900); Monocytes Percent Auto 7.8 % (3-14); Neutrophils Absolute Auto 3800 /uL (1500-7000); Neutrophils Percent Auto 51.4 % (50-75); Platelet Count 239 X10^3/uL (150-400); Red Blood Cell Count 5.36 X10^6/uL (4.5-5.9); Red Cell Distribution Width 13.4 % (11.6-14.8); White Blood Cell Count 7.3 X10^3/uL (4.5-11.0)
[2023-10-16 09:40] LABS: Alanine Aminotransferase 24 IU/L (<50); Albumin 4.4 g/dL (3.5-5.0); Albumin Globulin Ratio 1.6 (1.0-2.8); Alkaline Phosphatase 52 U/L (38-126); Aspartate Aminotransferase 25 IU/L (17-59); BUN Creatinine Ratio 33.7 (6-22); Bilirubin Total 0.6 mg/dL (0.2-1.3); Blood Urea Nitrogen 30 mg/dL (9-20); Carbon Dioxide 26 mmol/L (22-32); Chloride 104 mmol/L (98-107); Cholesterol 256 mg/dL (140-199); Estimated Glomerular Filt Rate > 60 mL/min (>60); Globulin 2.8 g/dL (1.7-4.1); Glucose 116 mg/dL (80-110); HDL Cholesterol 51 mg/dL (40-60); HEMOLYSIS < 15 (0-50); LDL Cholesterol Calculated 169 mg/dL (<100); Sodium 140 mmol/L (137-145); Total Protein 7.2 g/dL (6.3-8.2); Triglycerides 181 mg/dL (35-150)
[2023-10-16 09:46] LABS: Potassium 6.2 mmol/L (3.4-5.1)
[2023-10-16 10:08] LABS: TSH w/ Reflex to FT4 1.23 uIU/mL (0.47-4.68)
[2023-10-16 10:10] LABS: Prostate Specific Antigen Scrn 0.087 ng/mL (0.1-4.0)
[2023-10-16 13:05] LABS: Creatinine Urine Random 75.4 mg/dL
[2023-10-16 13:14] LABS: Microalbumi Creatinin Ratio Ur 17.2 ug/mg CR (<30); Microalbumin Urine Random 1.3 mg/dL (0-1.6)
== END ==
PROVIDERS: PCP Family Medicine; Referring Provider Family Medicine; Visit Provider Family Medicine
DX: I35.0 Nonrheumatic aortic (valve) stenosis (principal); I10 Essential (primary) hypertension; Z12.5 Encounter for screening for malignant neoplasm of prostate; C61 Malignant neoplasm of prostate; I27.20 Pulmonary hypertension, unspecified; E78.2 Mixed hyperlipidemia
CPT/HCPCS: 36415; 80053; 80061; 82043; 82570; 84443; 85025; G0103

== ENCOUNTER → 2023-10-23 08:57 | Outpatient (CLI) | payer MEDICARE, SELFPAY ==
--- NOTE | 2023-10-23 09:00 | DI.US.S_ITS ---
PROCEDURE: US CAROTID DOPPLER BI INDICATIONS: exertional dyspnea, HTN TECHNIQUE: Color and pulse Doppler interrogation was performed of both carotid systems, with image documentation and velocity measurements. COMPARISON: [facility], , CAROTID ARTERY DOPPLER [facility], 09/09/2017, 7:49. FINDINGS: Stenosis calculations are based on SRU (Society of Radiologists in Ultrasound) criteria. Right side: Brachial blood pressure: 178/76 mm Hg. Common carotid artery peak systolic velocity: 71 cm/sec. Internal carotid artery peak systolic velocity: 131 cm/sec. Internal carotid artery end diastolic velocity: 32 cm/sec. External carotid artery peak systolic velocity: 347 cm/sec. ICA/CCA peak systolic ratio: 1.8 . Eckert scale imaging description: Atheromatous calcifications are present at the carotid bifurcation. Percent internal carotid artery stenosis: 50-69% stenosis. Vertebral artery: Flow direction is antegrade. Left side: Brachial blood pressure: 170/76 mm Hg. Common carotid artery peak systolic velocity: 88 cm/sec. Internal carotid artery peak systolic velocity: 89 cm/sec. Internal carotid artery end diastolic velocity: 25 cm/sec. External carotid artery peak systolic velocity: 138 cm/sec. ICA/CCA peak systolic ratio: 1.0. Eckert scale imaging description: Mild atheromatous plaque is present at the carotid bulb. Percent internal carotid artery stenosis: Less than 50% stenosis. Vertebral artery: Flow direction is antegrade. IMPRESSION: 1. 50-69% stenosis of the right internal carotid artery. Please note, this is increased in extent when compared with the prior study dated September 09, 2017. 2. Less than 50% stenosis of the left internal carotid artery. Dictated by: Essence Hernández M.D. on 10/23/2023 at 13:25 Approved by: Essence Hernández M.D. on 10/23/2023 at 13:34
[2023-10-23 10:34] LABS: Alanine Aminotransferase 25 IU/L (<50); Albumin 4.3 g/dL (3.5-5.0); Albumin Globulin Ratio 1.5 (1.0-2.8); Alkaline Phosphatase 60 U/L (38-126); Aspartate Aminotransferase 27 IU/L (17-59); BUN Creatinine Ratio 32.5 (6-22); Bilirubin Total 0.7 mg/dL (0.2-1.3); Blood Urea Nitrogen 26 mg/dL (9-20); Calcium 9.8 mg/dL (8.4-10.2); Carbon Dioxide 26 mmol/L (22-32); Chloride 99 mmol/L (98-107); Estimated Glomerular Filt Rate > 60 mL/min (>60); Globulin 2.8 g/dL (1.7-4.1); Glucose 127 mg/dL (80-110); HEMOLYSIS < 15 (0-50); Potassium 4.6 mmol/L (3.4-5.1); Sodium 136 mmol/L (137-145); Total Protein 7.1 g/dL (6.3-8.2)
== END ==
LOC: US 08:59
PROVIDERS: PCP Family Medicine; Referring Provider Family Medicine; Visit Provider Family Medicine
DX: I65.23 Occlusion and stenosis of bilateral carotid arteries (principal); R06.09 Other forms of dyspnea; I27.20 Pulmonary hypertension, unspecified; I25.10 Atherosclerotic heart disease of native coronary artery without angina pectoris; I10 Essential (primary) hypertension; E78.2 Mixed hyperlipidemia; E87.5 Hyperkalemia; Z95.5 Presence of coronary angioplasty implant and graft
CPT/HCPCS: 36415; 80053; 93880

== ENCOUNTER → 2023-11-12 07:02 | Outpatient (CLI) | payer MEDICARE, SELFPAY ==
--- NOTE | 2023-11-12 07:04 | DI.ECHO.S_ITS ---
[facility] +---------+ : : [address] : : : : [phone] : : : : Phone: [phone]+ Echocardiogram Report + + :Name: NIKI MONTANO Study Date: 11/12/2023 Height: 66 in : :[facility] ReadingLocation: Weight: 170 lb : : Gender: Male BSA: 1.9 m2 : :: 1945 Age: 78 yrs BP: 168/77 mmHg: :Reason For Study: CORONARY ARTERY DISEASE : :Ordering Physician: BEN, : :MORRO Performed By: Angie Edwards : :Referring: MORRO CONTRERAS : + + Interpretation Summary The patient was in sinus bradycardia with heart rates between 44-56 bpm during the exam. The ejection fraction is estimated to be 60-65%. Diastolic function could not be accurately assessed due to contradictory data. The right ventricle is normal in size and function. There is prolapse of the posterior mitral valve leaflet(s). There is mild to moderate mitral regurgitation. Pulmonary artery pressures cannot be estimated because of the lack of a measurable TR jet velocity but the IVC suggests a CVP of around 3 mmHg. Compared to the prior study dated 11/13/2017, there is been an increase in the mitral regurgitation. Procedure: A two-dimensional transthoracic echocardiogram with color flow and Doppler was performed. The study quality was technically adequate. There is no prior echocardiogram noted for this patient. The patient was in sinus bradycardia with heart rates between 44-56 bpm during the exam. Left Ventricle: The left ventricle is normal in size and wall thickness. The ejection fraction is estimated to be 60-65%. Diastolic function could not be accurately assessed due to contradictory data. Right Ventricle: The right ventricle is normal in size and function. Atria: The left atrial size is normal. Right atrial size is normal. There is no Doppler evidence for an interatrial shunt. Mitral Valve: The mitral valve leaflets appear borderline thickened, but open well. There is prolapse of the posterior mitral valve leaflet(s). There is mild mitral valve prolapse. There is mild to moderate mitral regurgitation. Aortic Valve: The aortic valve is trileaflet. The aortic valve opens well. The aortic valve is slightly calcified. There is no aortic valve stenosis. No aortic regurgitation is present. Tricuspid Valve: The tricuspid valve is normal in structure and function. There is trace tricuspid regurgitation. Pulmonary artery pressures cannot be estimated because of the lack of a measurable TR jet velocity but the IVC suggests a CVP of around 3 mmHg. Pulmonic Valve: The pulmonic valve leaflets are thin and pliable; valve motion is normal. There is trace pulmonic regurgitation. Great Vessels: The aortic root is normal size. The dimensions of the ascending aorta are normal. The IVC is of normal diameter and collapses greater than 50% with a sniff. This suggests a low right atrial pressure of 3 mm Hg. Pericardium/ Pleura There is no pericardial effusion. There is no pleural effusion. MMode/2D Measurements & Calculations LVIDd: 5.5 cm LVOT diam: 2.3 cm LVIDs: 3.3 cm Ao root diam: 2.9 cm FS: 39.8 % asc Aorta Diam: 3.0 cm IVSd: 0.86 cm LVPWd: 0.88 cm LV perry. diameter/BSA (cm/m^2): 3.0 LV sys. diameter/BSA (cm/m^2): 1.8 LA A2 area: 19.8 cm2 RA long axis: 5.2 cm LA A4 area: 19.3 cm2 RA area: 16.9 cm2 LA length (vol): 5.8 cm RA vol: 46.2 ml LA vol: 56.1 ml RA : 24.8 ml/m2 LA vol index: 30.1 ml/m2 IVC diam: 1.1 cm RVD1 (basal): 3.7 cm RVD2 (mid): 2.9 cm TAPSE: 2.4 cm Doppler Measurements & Calculations Ao V2 max: 143.0 cm/sec LVOT Max Vargas: 89.1 cm/sec Ao V2 mean: 92.6 cm/sec LV V1 max P.2 mmHg Ao max P.2 mmHg LV V1 VTI: 20.4 cm Ao mean P.9 mmHg JORDYN(I,D): 2.8 cm2 Ao V2 VTI: 29.2 cm JORDYN(V,D): 2.5 cm2 sev ratio: 0.70 JORDYN indexed to BSA (cm^2/m^2): 1.5 MV E max vargas: 102.7 cm/sec TR max vargas: 257.7 cm/sec MV A max vargas: 100.3 cm/sec TR max P.6 mmHg MV E/A: 1.0 PA V2 max: 121.9 cm/sec Med Peak E' Vargas: 4.8 cm/sec PA V2 mean: 79.8 cm/sec E/E' med: 21.4 PA mean P.8 mmHg Lat Peak E' Vargas: 6.1 cm/sec PA pr(Accel): 25.9 mmHg E/E' lat: 16.8 E/e' average: 19.1 MV dec time: 0.27 sec SV(LVOT): 81.4 ml Reading Physician:11:19 AM
== END ==
PROVIDERS: PCP Family Medicine; Referring Provider Family Medicine; Visit Provider Family Medicine
DX: I25.10 Atherosclerotic heart disease of native coronary artery without angina pectoris (principal); I34.1 Nonrheumatic mitral (valve) prolapse; I34.0 Nonrheumatic mitral (valve) insufficiency; I10 Essential (primary) hypertension; E78.2 Mixed hyperlipidemia
CPT/HCPCS: 93306

== ENCOUNTER → 2023-11-22 09:20 | Outpatient (CLI) | payer MEDICARE, SELFPAY ==
--- NOTE | 2023-11-25 21:34 | DI.NM.S_ITS ---
DATE OF SERVICE: 11/22/2023 PROCEDURE PERFORMED: Pharmacologic vasodilator stress and rest myocardial perfusion imaging with gating to assess ejection fraction and regional wall motion. ORDERING PROVIDER: Dr. Brenton Pires. INDICATIONS: The patient is a 78-year-old male with previous coronary artery stenting and known carotid disease who presents with worsening dyspnea. CARDIAC STRESS: Per protocol, 0.4 mg of regadenoson was infused with a normal hemodynamic response and no anginal symptoms. His resting ECG showed LVH with repolarization abnormality. With stress, there were no significant ST-segment shifts but had considerable RR variability suggesting sinus arrhythmia or a wandering atrial pacemaker, but no rapid or concerning arrhythmias. Per protocol, 25.0 millicuries of technetium-99m Myoview was injected and he was imaged 15 minutes later using a gated SPECT acquisition protocol. Three days prior, he had been injected with 27.3 millicuries of technetium-99m Myoview while at rest and was imaged 15 minutes later, again using a gated SPECT acquisition protocol. FINDINGS: 1. Raw data. There is fairly good myocardial tracer uptake. The lung/heart ratio is normal at 0.36 with a normal TID ratio of 1.06. 2. Quantitated gated SPECT: Post-stress ejection fraction is 71% without any focal wall motion abnormality and specifically the distal inferolateral wall appears to have brisk contractility. The resting ejection fraction is 67% with a normal resting end-diastolic volume of 94 mL. 3. Myocardial perfusion imaging: Post-stress supine images show a small, subtle defect in the distal inferolateral segment but otherwise appear normal. This defect essentially resolves on the prone imaging, suggesting that it most likely reflects attenuation artifact. The resting images show a similar perfusion pattern, although with some improvement in the distal inferolateral segment. IMPRESSION: 1. Probable normal myocardial perfusion study. 2. Small, subtle, partially reversible perfusion defect in the distal inferolateral segment that essentially resolves on prone imaging, most consistent with attenuation artifact although a small volume of ischemia cannot be entirely excluded. Yet, if present, it occupies a small volume of myocardium and is low risk. 3. Normal left ventricular size and systolic function without any focal wall motion abnormality. 4. No angina or ECG evidence of ischemia with pharmacologic vasodilator stress. He developed significant rhythm irregularity suggesting a wandering atrial pacemaker or profound sinus arrhythmia following regadenoson but there were no concerning arrhythmias. He had no anginal discomfort. 5. Compared to his previous myocardial perfusion study of 03/15/2021, an identical perfusion pattern was seen. He previously also had a small, subtle distal inferolateral defect that resolved on prone imaging although appeared to be more fixed then compared to on today's exam. His previous post-stress ejection fraction was 74% with a resting ejection fraction of 71% and an end-diastolic volume of 101 mL, suggesting the absence of any significant change. There has been no significant change from his previous study. Giovany Garcia - DANIEL/rell/CHIKA doc#: [id number]/job#: [id number] dd: 11/25/2023 15:25:00 dt: 11/25/2023 21:15:00 DICTATING /COPIES TO: Mukund Lugo MD; Brenton Pires, BLU MNE: KATERYNA;
== END ==
PROVIDERS: PCP Family Medicine; Referring Provider Family Medicine; Visit Provider Family Medicine
DX: I65.29 Occlusion and stenosis of unspecified carotid artery (principal); R06.09 Other forms of dyspnea; Z95.5 Presence of coronary angioplasty implant and graft
CPT/HCPCS: 78452; 93016; 93017; A9502; J2785

== ENCOUNTER 2025-01-02 08:27 | Emergency (ER) | payer MEDICARE, SELFPAY ==
[2025-01-02] VITALS (18 sets, daily range): BP systolic 127–209; BP diastolic 60–90; PULSE 49–75; RESP 16–18; TEMP 36.5; O2SAT 93–98; BMI 27.4
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
--- NOTE | 2025-01-02 09:36 | DI.CT.S_ITS ---
PROCEDURE: CT LE LT W CON INDICATIONS: LLE amputation with infection TECHNIQUE: After the administration of intravenous contrast, 3 mm axial sections acquired of the left tibia/fibula COMPARISON: None. FINDINGS: Amputation of the foot at the tibial plafond and distal fibula same level. Distal tibial and fibular fusion. Diffuse dystrophic calcification of the syndesmosis. Proximal tib fib joint unremarkable. Soft tissue swelling noted anteriorly with edema and enhancement at the amputation site. Small underlying in capsulated fluid collection measures 1.1 x 0.9 cm. No osseous erosion IMPRESSION: Possible small 1 cm soft tissue abscess. No osseous erosion. Approved by: Jon Melgar M.D. on 01/02/2025 at 12:41
[2025-01-02] MEDS: cefTRIAXone 1,000 MG in SODIUM CHLORIDE 0.9% 100 ML 200 MG IV (10:03)
[2025-01-02] MEDS: LACTATED RINGERS 1,000 ML 1000 ML IV (10:04)
[2025-01-02 10:11] LABS: Add Manual Diff / Slide Review NO; Basophils Absolute Auto 100 /uL (0-100); Eosinophils Absolute Auto 300 /uL (0-450); Hematocrit 46.6 % (41-53); Hemoglobin 15.9 g/dL (13.5-17.5); Lymphocytes Absolute Auto 1200 /uL (1100-4500); Lymphocytes Percent Auto 13.4 % (25-40); Mean Corpuscular HGB Conc 34.2 % (30-36); Mean Corpuscular Hemoglobin 28.8 PG (26-34); Mean Corpuscular Volume 84.1 fL (80-100); Monocytes Absolute Auto 600 /uL (0-900); Monocytes Percent Auto 7.4 % (3-14); Neutrophils Absolute Auto 6400 /uL (1500-7000); Neutrophils Percent Auto 74.2 % (50-75); Platelet Count 260 X10^3/uL (150-400); Red Blood Cell Count 5.54 X10^6/uL (4.5-5.9); Red Cell Distribution Width 13.3 % (11.6-14.8); White Blood Cell Count 8.6 X10^3/uL (4.5-11.0)
[2025-01-02 10:27] LABS: Lactate (Lactic Acid) 1.9 mmol/L (0.7-2.1)
[2025-01-02 10:29] LABS: Alanine Aminotransferase 38 IU/L (<50); Albumin 4.3 g/dL (3.5-5.0); Albumin Globulin Ratio 1.4 (1.0-2.8); Alkaline Phosphatase 65 U/L (38-126); Aspartate Aminotransferase 38 IU/L (17-59); BUN Creatinine Ratio 33.8 (6-22); Bilirubin Total 0.7 mg/dL (0.2-1.3); Blood Urea Nitrogen 27 mg/dL (9-20); Calcium 9.2 mg/dL (8.4-10.2); Carbon Dioxide 25 mmol/L (22-32); Chloride 100 mmol/L (98-107); Estimated Glomerular Filt Rate > 60 mL/min (>60); Globulin 3.1 g/dL (1.7-4.1); Glucose 130 mg/dL (80-110); HEMOLYSIS 20 (0-50); Potassium 3.7 mmol/L (3.4-5.1); Sodium 136 mmol/L (137-145); Total Protein 7.4 g/dL (6.3-8.2)
[2025-01-02] MEDS: LIDOCAINE 1% W/EPI 20ML SUBCUT (14:19)
== END 2025-01-02 14:38 | disposition home or self-care (01) ==
PROVIDERS: Emergency Provider Family Medicine; PCP Family Medicine
DX: L02.416 Cutaneous abscess of left lower limb (principal); Z89.512 Acquired absence of left leg below knee
CPT/HCPCS: 10060; 36415; 73701; 80053; 83605; 85025; 87040; 96361; 96365; 99284; J0696; Q9967

== ENCOUNTER → 2025-02-08 08:40 | Outpatient (CLI) | payer MEDICARE, SELFPAY ==
[2025-02-08 09:40] LABS: Add Manual Diff / Slide Review NO; Basophils Absolute Auto 100 /uL (0-100); Basophils Percent Auto 1.4 % (0-2); Eosinophils Absolute Auto 300 /uL (0-450); Eosinophils Percent Auto 4.7 % (2-4); Hematocrit 44.7 % (41-53); Hemoglobin 15.4 g/dL (13.5-17.5); Lymphocytes Absolute Auto 1800 /uL (1100-4500); Mean Corpuscular HGB Conc 34.5 % (30-36); Mean Corpuscular Hemoglobin 29.1 PG (26-34); Mean Corpuscular Volume 84.4 fL (80-100); Monocytes Absolute Auto 600 /uL (0-900); Monocytes Percent Auto 9.7 % (3-14); Neutrophils Absolute Auto 3300 /uL (1500-7000); Neutrophils Percent Auto 54.2 % (50-75); Platelet Count 234 X10^3/uL (150-400); Red Blood Cell Count 5.29 X10^6/uL (4.5-5.9); Red Cell Distribution Width 13.2 % (11.6-14.8); White Blood Cell Count 6.1 X10^3/uL (4.5-11.0)
[2025-02-08 09:48] LABS: Hemoglobin A1C% w Est Avg Glu 5.8 % (4.0-6.0)
[2025-02-08 09:59] LABS: Creatinine Urine Random 93.01 mg/dL
[2025-02-08 10:00] LABS: Alanine Aminotransferase 31 IU/L (<50); Albumin 4.5 g/dL (3.5-5.0); Alkaline Phosphatase 60 U/L (38-126); Aspartate Aminotransferase 30 IU/L (17-59); BUN Creatinine Ratio 30.1 (6-22); Bilirubin Total 0.9 mg/dL (0.2-1.3); Blood Urea Nitrogen 28 mg/dL (9-20); Calcium 9.3 mg/dL (8.4-10.2); Carbon Dioxide 28 mmol/L (22-32); Chloride 97 mmol/L (98-107); Cholesterol 214 mg/dL (140-199); Estimated Glomerular Filt Rate > 60 mL/min (>60); Globulin 2.2 g/dL (1.7-4.1); Glucose 129 mg/dL (70-99); HDL Cholesterol 43 mg/dL (40-60); HEMOLYSIS < 15 (0-50); LDL Cholesterol Calculated 148 mg/dL (<100); Potassium 4.1 mmol/L (3.4-5.1); Sodium 134 mmol/L (137-145); Total Protein 6.7 g/dL (6.3-8.2); Triglycerides 117 mg/dL (35-150)
[2025-02-08 10:03] LABS: Microalbumin Urine Random 0.9 mg/dL (0-1.6)
[2025-02-08 10:30] LABS: TSH w/ Reflex to FT4 0.83 uIU/mL (0.47-4.68)
[2025-02-08 22:40] LABS: PSA Ultrasensitive 0.026 ng/mL (0.000-4.000)
[2025-02-09 04:08] LABS: Apolipoprotein B 114 mg/dL (<90)
== END ==
LOC: LAB 08:42
PROVIDERS: PCP Family Medicine; Referring Provider Family Medicine; Visit Provider Family Medicine
DX: I65.29 Occlusion and stenosis of unspecified carotid artery (principal); I10 Essential (primary) hypertension; I25.10 Atherosclerotic heart disease of native coronary artery without angina pectoris; C61 Malignant neoplasm of prostate; I27.20 Pulmonary hypertension, unspecified; I35.0 Nonrheumatic aortic (valve) stenosis; E78.2 Mixed hyperlipidemia
CPT/HCPCS: 36415; 80053; 80061; 82043; 82172; 82570; 83036; 84153; 84443; 85025

== ENCOUNTER 2025-02-11 08:57 | Emergency (ER) | payer MEDICARE, SELFPAY ==
[2025-02-11] VITALS (7 sets, daily range): BP systolic 129–170; BP diastolic 59–82; PULSE 49–64; RESP 18–20; TEMP 36.6–36.7; O2SAT 93–98; BMI 26.9
--- NOTE | 2025-02-11 11:39 | ED_ITS ---
HPI - Skin/Abscess/Foreign Bdy <Radha Stoll PA-C - Last Filed: 02/11/25 14:33> General Chief complaint: Skin/Abscess/Foreign Body Stated complaint: Lower left leg infection Time Seen by Provider: 02/11/25 11:11 Source: patient Mode of arrival: Ambulatory History of Present Illness HPI narrative: Mr. 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 Patient has been dealing with cellulitis and abscess of his left ankle stump, most recently in the beginning of December which she was treated with antibiotics (Augmentin) and incision and drainage. Patient states few days ago his temp started to get red again and he developed a swollen/pimple like area that he was concerned was an abscess. He denies any trauma or wounds to the stump. He is decreased sensation at baseline. He is otherwise feeling well with no chest p ain, shortness of breath, fevers, chills, nausea, vomiting or any other concerns. He does wear a prosthesis over the ankle stump which is very tight. He denies ever having a wound culture performed previously. Related Data Home Medications Medication Instructions Recorded Confirmed aspirin 81 mg tablet,delayed ##0 12/22/02/09/25 release Previous Rx's Medication Instructions Recorded nitroglycerin 0.4 mg sublingual 0.4 mg sublingual PRN #100 tabs 01/15/22 tablet (Nitrostat) amlodipine 5 mg tablet 5 mg PO DAILY #90 tabs 10/08/24 atenolol 50 mg tablet 25 mg (1/2 x 50 mg) PO DAILY #45 10/08/24 tabs ezetimibe 10 mg tablet (Zetia) 10 mg PO DAILY #90 tabs 10/08/24 hydrochlorothiazide 25 mg tablet 25 mg PO DAILY #90 tabs 10/08/24 doxycycline hyclate 200 mg 200 mg PO BID #14 tabs 01/01/25 tablet,delayed release doxycycline hyclate 100 mg capsule 100 mg PO BID 10 days #20 caps 02/11/25 Allergies Allergy/AdvReac Type Severity Reaction Status Date / Time No Known Drug Allergies Allergy Verified 02/09/25 08:32 Review of Systems <Radha Stoll PA-C - Last Filed: 02/11/25 14:33> Review of Systems ROS Unobtainable: All systems reviewed & are unremarkable except as noted in HPI and below Patient History <Radha Stoll PA-C - Last Filed: 02/11/25 14:33> Medical History Carotid artery stenosis Hyperkalemia Mumps Measles Chicken pox Irritable bowel syndrome Skin cancer (~1999) Surgical History Anesthesia History of surgery (~2013) History of angioplasty (~2009) Status post amputation of extremity Family History Brother Age: 73 Hypertension High cholesterol Brother Age: 73 Hypertension High cholesterol Father Heart disease High cholesterol Mother Stroke Sister Stroke alcohol intake frequency: 0-2 drinks per day Exam <Radha Stoll PA-C - Last Filed: 02/11/25 14:33> Narrative Exam Narrative: GENERAL: 79 year old patient appears stated age. Well-developed patient, in no acute distress. HEAD: Atraumatic. Normocephalic. CARDIOVASCULAR: Regular rate and rhythm, systolic murmur present. RESPIRATORY: ?Nonlabored respirations. ?Speaking in clear, full sentences. ?Clear to auscultation. Breath sounds equal bilaterally. No wheezes, rales, or rhonchi. ? GASTROINTESTINAL: Abdomen soft, non-tender, nondistended. EXTREMITIES: Left ankle amputation/BKA. On the anterior aspect of the amputation stump there is a 1 cm circular raised, firm lesion and there is surrounding erythema of the stump end, there is no streaking erythema or extending skin changes on to the anterior lower leg. He still has brisk capillary refill on the stump. NEURO: AOx3. ?Clear speech. ?Moves all 4 extremities appropriately. Initial Vital Signs Initial Vital Signs: Vital Signs Temperature 98 F 02/11/25 09:08 Pulse Rate 52 L 02/11/25 09:08 Respiratory Rate 20 02/11/25 09:08 Blood Pressure 170/82 H 02/11/25 09:08 Pulse Oximetry 98 02/11/25 09:08 Oxygen Delivery Method Room Air 05/15/25 09:08 <Sam Henao MD - Last Filed: 02/16/25 10:24> Initial Vital Signs Initial Vital Signs: Vital Signs Temperature 98 F 02/11/25 09:08 Pulse Rate 52 L 02/11/25 09:08 Respiratory Rate 20 02/11/25 09:08 Blood Pressure 170/82 H 02/11/25 09:08 Pulse Oximetry 98 02/11/25 09:08 Oxygen Delivery Method Room Air 02/11/25 09:08 Procedures <Radha Stoll PA-C - Last Filed: 02/11/25 14:33> Abscess I/D I&D #1: Time of procedure: 12:00 Site: lower extremity Side (if applicable): left Local Anesthetic: lidocaine 1% and with epi Amount of anesthesia used (mL): 1 Technique: incised with #11 blade Amount of fluid expressed (mL): 3 Irrigation: Yes Packing used?: iodoform Course <Radha Stoll PA-C - Last Filed: 02/11/25 14:33> Orders Ordered: Discontinued Medications Doxycycline Hyclate (Doxycycline Hyclate 100 Mg Tablet) 100 mg PO NOW ONE Stop: 02/11/25 12:13 Last Admin: 02/11/25 12:29 Dose: 100 mg Documented By: JUAN Vital Signs Vital signs: Vital Signs - 8 hr 02/11/25 09:08 02/11/25 09:51 02/11/25 09:52 Temperature 98 F Pulse Rate 52 L 64 63 Respiratory Rate 20 Blood Pressure 170/82 H Pulse Oximetry 98 95 95 Oxygen Delivery Method Room Air 02/11/25 09:52 02/11/25 09:53 02/11/25 10:00 Temperature 98.0 F Pulse Rate 60 Respiratory Rate 18 Blood Pressure 152/71 H 157/71 H 129/59 L Pulse Oximetry 94 Oxygen Delivery Method Room Air 02/11/25 10:00 02/11/25 10:30 02/11/25 10:30 Temperature Pulse Rate 52 L 49 L Respiratory Rate Blood Pressure 134/64 Pulse Oximetry 95 93 Oxygen Delivery Method 02/11/25 12:30 Temperature Pulse Rate 60 Respiratory Rate 18 Blood Pressure 159/73 H Pulse Oximetry 95 Oxygen Delivery Method Room Air <Sam Henao MD - Last Filed: 02/16/25 10:24> Orders Ordered: Discontinued Medications Doxycycline Hyclate (Doxycycline Hyclate 100 Mg Tablet) 100 mg PO NOW ONE Stop: 02/11/25 12:13 Last Admin: 02/11/25 12:29 Dose: 100 mg Documented By: JUAN Vital Signs Vital signs: Vital Signs - 8 hr 02/11/25 09:08 02/11/25 09:51 02/11/25 09:52 Temperature 98 F Pulse Rate 52 L 64 63 Respiratory Rate 20 Blood Pressure 170/82 H Pulse Oximetry 98 95 95 Oxygen Delivery Method Room Air 02/11/25 09:52 02/11/25 09:53 02/11/25 10:00 Temperature 98.0 F Pulse Rate 60 Respiratory Rate 18 Blood Pressure 152/71 H 157/71 H 129/59 L Pulse Oximetry 94 Oxygen Delivery Method Room Air 02/11/25 10:00 02/11/25 10:30 02/11/25 10:30 Temperature Pulse Rate 52 L 49 L Respiratory Rate Blood Pressure 134/64 Pulse Oximetry 95 93 Oxygen Delivery Method 02/11/25 12:30 Temperature Pulse Rate 60 Respiratory Rate 18 Blood Pressure 159/73 H Pulse Oximetry 95 Oxygen Delivery Method Room Air MDM - Skin/Abscess/Foreign Bdy <Radha Stoll PA-C - Last Filed: 02/11/25 14:33> Medical Records Attestation: I reviewed the patient's medical records. 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 Differential diagnosis includes but is not limited to cellulitis, abscess, etc. On exam the patient is in no acute distress, nontoxic appearing, vital signs appropriate. He has erythema of his left BKA/ankle stump with a 1 cm circular area of swelling on the anterior aspect clinically consistent with an abscess. After shared decision-making with the patient, we will proceed with systems integration manager and I and D without any prior imaging. No fevers or systemic symptoms concerning for the need for lab work. Lidocaine 1% with epi was used to anesthetize the wound after cleansing, a very small incision was made and a moderate amount of purulent drainage was immediately expressed, this drainage was cultured, after all purulence was expressed the wound was irrigated then a very small amount of iodoform packing was placed. A nonadherent dressing was applied by myself. Advised the patient has wound recheck in 2 days for packing removal however I did use a very small amount so informed him that it likely will come out on its own. Discussed proper wound care and completion of full course of antibiotics. Will treat with doxycycline for MRSA coverage. Recommended that he does not wear prosthesis as much as possible in order to allow the area to heal. Discussed strict ED return precautions and follow up with PCP. He verbalized understanding of all information agreeable with the plan, 1st dose of antibiotics given in the ED. He is stable for discharge home. Discharge Plan Departure Patient Disposition: Home Clinical Impression: Abscess of left lower leg Instructions: DI for Skin Abscess Activity Restrictions/Additional Instructions: Dear Mr. Garcia, Thank you for coming to the emergency department. Today you were evaluated for infection of your left lower ankle, an incision and drainage was performed and a very small amount of packing was placed into the open wound. I did obtain a wound culture which was sent to the lab and will grow whatever bacteria is causing your infection over the next few days, you will be called if you need a different antibiotic. I would like you to follow up with your primary care provider, the walk-in clinic, or the emergency department in 2 days for a wound recheck, the packing can be removed at that time if it has not already fallen out on its own. Keep the wound clean, dry, covered at all times. Come to the emergency department immediately if you develop any new or worsening symptoms such as fevers or streaking redness up the leg. Please follow up with your primary care doctor within the next 2-3 days for ER follow-up. (If you do not have a PCP you can call [phone]. ?to schedule an appointment with an [facility] Primary Care Provider) IF YOU DEVELOP ANY NEW OR WORSENING SYMPTOMS, RETURN TO THE ER! Please read the attached instructions, they highlight more specific treatments and interventions for you at home. Thank you for letting me participate in your care, Radha Stoll PA-C Prescriptions: New doxycycline hyclate 100 mg capsule 100 mg PO BID 10 Days Qty: 20 0RF No Action aspirin 81 MG tablet,delayed release (DR/EC) Qty: 0 nitroglycerin [Nitrostat] 0.4 mg tablet, sublingual 0.4 mg Sublingual PRN Qty: 100 5RF doxycycline hyclate 200 mg tablet,delayed release (DR/EC) 200 mg PO BID Qty: 14 0RF hydrochlorothiazide 25 mg tablet 25 mg PO DAILY Qty: 90 3RF ezetimibe [Zetia] 10 mg tablet 10 mg PO DAILY Qty: 90 3RF amlodipine 5 mg tablet 5 mg PO DAILY Qty: 90 3RF atenolol 50 mg tablet 25 mg PO DAILY Qty: 45 3RF Referrals: Brenton Pires MD [Primary Care Provider] - Stand Alone Forms: Patient Portal/API/Survey ED Sign-out <Sam Henao MD - Last Filed: 02/16/25 10:24> Cosign ED Attending Cosignature Attestation: I was immediately available in the department for consultation. ?This documentation has been reviewed and I agree with assessment and plan. Supervised by Sam Henao MD
[2025-02-11] MEDS: DOXYCYCLINE HYCLATE 100 MG TABLET PO (12:29)
== END 2025-02-11 12:37 | disposition home or self-care (01) ==
PROVIDERS: Emergency Provider Physician Assistant; PCP Family Medicine
DX: L02.416 Cutaneous abscess of left lower limb (principal); Z89.512 Acquired absence of left leg below knee
CPT/HCPCS: 10060; 87070; 87075; 87205; 99283